=== PATIENT | female | born 1980 | race Caucasian/White ===

== ENCOUNTER 2017-09-04 08:26 | Outpatient (CLI) | payer SELFPAY ==
[~2017-09-04] VITALS: Ht 170.2 cm; Wt 105.0 kg
[2017-09-04 08:41] VITALS: BP 120/70
[2017-09-04 09:31] LABS: BASOPHIL COUNT 0.1 K/uL (0-0.1); EOSINOPHIL (%) 0.7 % (0-5); EOSINOPHIL COUNT 0.1 K/uL (0-0.3); HEMATOCRIT 36.9 % (36.0-46.0); IMMATURE GRANULOCYTE (%) 4.6 % (0.0-0.7); IMMATURE GRANULOCYTE COUNT 0.6 K/uL; INSTRUMENT ABS NEUTROPHIL CT 8.8 K/uL; LYMPHOCYTE COUNT 2.7 K/uL (1.0-2.8); MCHC 33.9 G/DL (30.0-36.0); MCV 88.7 FL (83-99); MEAN PLAT.VOLUME 10.6 uM^3 (9.5-12.4); MONOCYTE (%) 6.2 % (3-12); MONOCYTE COUNT 0.8 K/uL (0-0.8); NEUTROPHIL (%) 67.2 % (45-76); NEUTROPHIL COUNT 8.8 K/uL (1.8-6.4); PLATELET COUNT 174 K/uL (156-360); RBC DIS.WIDTH-CV 14.7 % (11.8-14.6); RBC DIS.WIDTH-SD 47.4 % (39-53); RED BLOOD COUNT 4.16 M/uL (3.80-5.20); WHITE BLOOD COUNT 13.2 K/uL (4.1-10.2)
[2017-09-04 09:50] LABS: ANION GAP 11 MEQ/L (2-14); CHLORIDE 104 MEQ/L (99-109); POTASSIUM 3.8 MEQ/L (3.7-5.4); SAMPLE HEMOLYSIS CHECK 1; SAMPLE ICTERIC CHECK 0; SAMPLE LIPEMIA CHECK 0; SODIUM 137 MEQ/L (136-147); TOTAL BILIRUBIN 0.6 MG/DL (0.0-1.0)
[2017-09-04 09:56] LABS: ALKALINE PHOSPHATASE 95 IU/L (3-129); GFR ESTIMATE (CALCULATED) > 59 mL/min/; GLUCOSE 121 mg/dL (70-99); UREA NITROGEN (BUN) 5 mg/dL (9-23)
[2017-09-04 12:17] LABS: POINT-OF-CARE METER ID UU13113692
[2017-09-04 13:18] VITALS: BP 104/67
== END 2017-09-04 15:30 | disposition home or self-care (01) ==
LOC: LDRP-OP 08:26 → 2WEST 08:38
PROVIDERS: Obstetrics & Gynecology; Obstetrics & Gynecology Obstetrics
DX: O47.03 False labor before 37 completed weeks of gestation, third trimester (principal); O09.33 Supervision of pregnancy with insufficient antenatal care, third trimester; O34.219 Maternal care for unspecified type scar from previous cesarean delivery; Q79.59 Other congenital malformations of abdominal wall; Z3A.36 36 weeks gestation of pregnancy
CPT/HCPCS: 59025; 80053; 82948; 85025; 85384; G0378; J0595; J0702; J7120